=== PATIENT | male | born 1955 | race Caucasian/White ===

== ENCOUNTER 2020-07-27 10:47 | Inpatient (IN) ==
--- NOTE | 2020-07-05 13:45 | PAT Medication Instructions ---
Medication Instructions Date of Service July 05, 2020 Home Medications acetaminophen [Tylenol] 325 mg PO QID PRN hydroxyzine HCl 25 mg PO HS PRN lisinopril 5 mg PO QAM meloxicam 15 mg PO QDL ASK your surgeon for instructions meloxicam 15 mg PO QDL DO NOT take the morning of surgery lisinopril 5 mg PO QAM Take morning of surgery With a small sip of water, OTHERWISE NOTHING TO EAT OR DRINK AFTER MIDNIGHT: acetaminophen [Tylenol] 325 mg PO QID PRN (okay to take up to 4 hours prior to surgery if needed) Take evening before surgery acetaminophen [Tylenol] 325 mg PO QID PRN (if needed) hydroxyzine HCl 25 mg PO HS PRN (if needed) Other Notes If you have any questions please call us at [phone] or [phone] or [phone] or [phone]
--- NOTE | 2020-07-07 13:05 | Anesthesiology Consultation ---
Date of Service July 07, 2020 Assessment & Plan (1) Encounter for pre-operative examination: Chart Review Chart Review: Acceptable Risk for Surgery (pending preop Covid testing ) and Patient seen in Pre Admission Testing Per PAT 07/07/20, patient denies any recent travel. Patient denies any recent Covid infection in the past 90 days. No known Covid positive contacts or Covid related symptoms. Preop Covid testing scheduled 07/22/20= will await results . Educated on importance of self quarantining, social distancing and wearing mask in public both for the patient and household contacts. Teaching & Discussion Pre-Anesthesia Teaching/Discussion Notes: Instructed NPO after midnight before surgery,except medications with 15 cc of water. Medication instructions provi ded according to the PAT guidelines. History Surgery Operation Date: 07/27/20 09:15 Proposed Procedures p Right Total Shoulder Arthroplasty - Garcia Brasher MD Height/Weight Height: 5 ft 9 in Weight: 107.5 kg Allergies Allergy/AdvReac Type Severity Reaction Status Date / Time nitroglycerin AdvReac Mild passed Unverified 06/22/20 09:31 out, low blood pressure Medications Home Medications Medication Instructions Recorded Confirmed Last Taken acetaminophen [Tylenol] 325 mg PO QID PRN 06/22/20 06/22/20 Unknown hydroxyzine HCl 25 mg PO HS PRN 06/22/20 06/22/20 Unknown lisinopril 5 mg PO QAM 06/22/20 06/22/20 Unknown meloxicam 15 mg PO QDL 06/22/20 06/22/20 Unknown Past Medical History Medical History TANGIRNAQ (hard of hearing) No hearing aids at this time HTN (hypertension) Osteoarthritis Exercise / Class Metabolic Activity II 4-5 Yardwork/Stairs/Walk up hill (ONE FLIGHT OF STAIRS - NO CHEST PAIN OR SOB ) Past Family History Family History Mother Diabetes Other No family history of adverse response to anesthesia Past Surgical History Surgical History History of arthroscopic knee surgery BL History of arthroscopy of left shoulder History of colonoscopy History of lumbar surgery History of tooth extraction Past Anesthesia History No Hx of Anesthesia Complications and No Family Hx of Anesthesia Complications History of PONV No Hx of PONV and No Hx of Motion Sickness Social History Smoking Status: Former smoker Smoking cigarettes per day: many years ago Do You Dip or Chew Tobacco: No (quit years ago) Hx Alcohol Use: No Hx Substance Use: No substance use type: does not use Review of Systems Patient denies chest pain, shortness of breath, dyspnea on exertion, reflux, cough, wheezing, palpitations. No hx of seizures, stroke, NH, apnea/snoring. No hx of blood clots or blood transfusions Physical Exam Vital Signs VITALS BP 119/80 P 88 TEMP 98.1 SP02 96% RESP 16 Constitutional no acute distress ENMT Mouth: no TMJ clicking Thyromental Distance: > or= 3.5 Finger Breadths (3.5) Mallampati Class: II (smaller airway ) Denies loose or missing teeth Neck + facial hair (encouraged patient to shave cordova ); neck extension not limited Respiratory normal respiratory effort; no respiratory distress Auscultation: lungs clear to auscultation bilaterally and + diminished lung sounds (mildly throughout ); no wheezes Cardiovascular Rate/Rhythm: regular rate and regular rhythm Heart Sounds: no murmur Vessels: no carotid bruit Musculoskeletal Spine: + pain with cervical ROM (mild ) Extremities: extremities normal to inspection Psychiatric Orientation: alert Testing Laboratory Results 07/07/20 13:27 07/07/20 13:52 PT 10.2 Seconds (9.0-12.0) 07/07/20 13:27 INR 1.0 (0.9-1.1) 07/07/20 13:27 APTT 27.2 Seconds (21.0-31.0) 07/07/20 13:27 Hemoglobin A1c 5.9 % (4.5-5.6) H 07/07/20 13:27 Urine Color Yellow 07/07/20 Unknown Urine Appearance Clear (Clear) 07/07/20 Unknown Urine pH 6.0 (4.5-7.5) 07/07/20 Unknown Ur Specific [place] 1.022 (1.000-1.030) 07/07/20 Unknown Urine Protein Negative (Negative) 07/07/20 Unknown Urine Glucose (UA) 1+ (Negative) H 07/07/20 Unknown Urine Ketones Negative (Negative) 07/07/20 Unknown Urine Nitrite Negative (Negative) 07/07/20 Unknown Ur Leukocyte Esterase Negative (Negative) 07/07/20 Unknown Blood Type A Positive 07/07/20 13:27 Antibody Screen NEGATIVE 07/07/20 13:27 Electrocardiogram Date: 07/07/20 Findings: + NSR @ (79bpm) Low voltage QRS. Cannot rule out anterior infarct, age undetermined. Compared to EKG from Mar 03, 2013- minimal criteria for anterior infarct now prsent (EKG from 2010 included - showing possible anterior infarct; pt has good functional status) Chest X-Ray Date: 07/07/20 Findings: + NAD There is mild elevation of the right hemidiaphragm and bibasilar atelectasis. No airspace consolidation or pleural effusion is identified. There is no pneumothorax.
[2020-07-07 13:49] LABS: Basophils # (auto) 0.05 K/uL (0-0.2); Basophils % (auto) 0.7 %; Eosinophils # (auto) 0.25 K/uL (0-0.5); Eosinophils % (auto) 3.6 %; Hematocrit (blood only) 45.8 % (42-52); Hemoglobin 15.9 g/dL (14.0-18.0); Immature Granulocytes # (auto) 0.01 K/uL (0.00-0.02); Immature Granulocytes % (auto) 0.1 %; Lymphocytes # (auto) 1.62 K/uL (1.2-3.4); Lymphocytes % (auto) 23.1 %; Mean Corpuscular Hemoglobin 30.2 pg (25-34); Mean Corpuscular Hgb Conc 34.7 g/dL (32-36); Mean Corpuscular Volume 87.1 fL (80-100); Mean Platelet Volume 10.4 fL (7.4-10.4); Monocytes # (auto) 0.96 K/uL (0.11-0.59); Monocytes % (auto) 13.7 %; Neutrophils # (auto) 4.11 K/uL (1.4-6.5); Neutrophils % (auto) 58.8 %; Platelet Count 208 K/uL (130-400); RDW Coefficient of Variation 12.6 % (11.5-14.5); RDW Standard Deviation 40.3 fL (36.4-46.3); Red Blood Count 5.26 M/uL (4.7-6.1)
--- NOTE | 2020-07-07 13:54 | XRay Report ---
TWO VIEW CHEST CLINICAL HISTORY: Preoperative examination. FINDINGS: PA and lateral chest radiographs are compared to study dated 12/06/2010. The cardiomediastina l silhouette is unremarkable noting atherosclerotic calcification of the thoracic aorta. There is mil d elevation of the right hemidiaphragm and bibasilar atelectasis. No airspace consolidation or pleura l effusion is identified. There is no pneumothorax. The bony thorax appears intact. IMPRESSION: No active disease in the chest. ACT 112: Negative or not required by law. Electronically signed by: Sloan Elias M.D. 07/07/2020 1:52 PM
[2020-07-07 14:01] LABS: Partial Thromboplastin Time 27.2 Seconds (21.0-31.0); Prothrombin Time 10.2 Seconds (9.0-12.0)
[2020-07-07 14:12] LABS: Estimated Average Glucose 123 mg/dl; Hemoglobin A1C 5.9 % (4.5-5.6)
[2020-07-07 14:24] LABS: BUN Creatinine Ratio 16.8 (10-20); Calcium 9.8 mg/dl (8.5-10.1); Creatinine Clr Calc Pharmacy 77.1 ml/min; Est GFR (African American) 75.9; Est GFR (Non-African American) 65.5; Potassium 4.1 mmol/L (3.5-5.1)
[2020-07-07 14:42] LABS: Appearance Urine Clear (Clear); Bilirubin Urine Negative (Negative); Blood Urine Negative (Negative); Color Urine Yellow; Glucose Urine UA 1+ (Negative); Ketones Urine Negative (Negative); Leukocyte Esterase Urine Negative (Negative); Nitrite Urine Negative (Negative); Protein Urine Negative (Negative); Specific Gravity Urine 1.022 (1.000-1.030); Urobilinogen Urine Negative (Negative)
--- NOTE | 2020-07-08 05:52 | Electrocardiogram Report ---
Test Reason : Blood Pressure : / mmHG Vent. Rate : 079 BPM Atrial Rate : 079 BPM P-R Int : 172 ms QRS Dur : 072 ms QT Int : 368 ms P-R-T Axes : 062 -23 062 degrees QTc Int : 421 ms Normal sinus rhythm Low voltage QRS Cannot rule out Anterior infarct , age undetermined Abnormal ECG When compared with ECG of 03-MAR-2013 07:35, Minimal criteria for Anterior infarct are now Present Confirmed by Aristides Landis ([id number]) on 07/08/2020 5:52:46 AM Referred By: Garcia Brasher Confirmed By:Aristides Landis
--- NOTE | 2020-07-10 21:31 | History & Physical Report ---
Date of Service July 10, 2020 Assessment & Plan (1) Primary osteoarthritis, right shoulder: Treatment options discussed with patient. He has failed conservative measures as above. Risks, benefits and alternatives to surgery including but not limited to infection, DVT, pain, stiffness, need for revision surgery, damage to blood vessels, damage to nerves, PE, , were discussed with the patient and they wish to proceed. Plan will be for right shoulder OVO motion total shoulder arthroplasty at [facility] on 07/27/[address] Brasher. All questions answered. He will follow up post operatively. Will plan on aspirin 81mg daily for DVT prophylaxis, OPPT post discharge. History of Present Illness Chief Complaint: Right shoulder pain Primary Care Provider: Vaughn Guzman 65 year old male with PMHx significant for HTN presents with ongoing right shoulder pain. He had previously underwent right shoulder arthroscopy with debridement, subacromial decompression, and distal clavicle excision. He has had progressive right shoulder pain interfering with his ability to carry out normal daily activity and his work activities. He has significant arthritis in right shoulder. He has failed conservative measures including injections, therapy, NSAIDs. Definitive treatment would be arthroplasty and he wishes to proceed. Patient denies headaches, sweats, fevers, chills, double vision, blurred vision, cough, sore throat, dysphagia, chest pain, sob, wheezing, n/v/d/c, numbness, tingling, fatigue, urinary symptoms, mood disorders. ROS positive for right shoulder pain and stiffness. Allergies Allergy/AdvReac Type Severity Reaction Status Date / Time nitroglycerin AdvReac Mild passed Unverified 06/22/20 09:31 out, low blood pressure Home Medications Medication Instructions Recorded Confirmed Type acetaminophen [Tylenol] 325 mg PO QID PRN 06/22/20 06/22/20 History hydroxyzine HCl 25 mg PO HS PRN 06/22/20 06/22/20 History lisinopril 5 mg PO QAM 06/22/20 06/22/20 History meloxicam 15 mg PO QDL 06/22/20 06/22/20 History Past Med/Surg History Medical History TAKOTNA (hard of hearing) No hearing aids at this time HTN (hypertension) Osteoarthritis Surgical History History of arthroscopic knee surgery BL History of arthroscopy of left shoulder History of colonoscopy History of lumbar surgery History of tooth extraction Family History Mother Diabetes Other No family history of adverse response to anesthesia Social History Smoking Status: Former smoker Cigarettes Per Day: many years ago; Second Hand Exposure: Yes (hx); Do You Dip or Chew Tobacco: No (quit years ago); Tobacco Cessation Education Requested by Patient: No Hx Alcohol Use: No Hx Substance Use: No Preferred Language: Brazilian Communication Ability: Effective Asbestos Abatement Technician Required: No Beliefs That Will Affect Care: None Current Living Situation: Spouse Feels Safe at Home: Yes Safety Concerns: Feels Safe At This Time Assistive Devices: Glasses Review of Systems All systems reviewed & are unremarkable except as noted in HPI & below Physical Exam Constitutional: well developed and well nourished; no acute distress Eyes: PERRL, conjunctivae normal, anicteric sclerae ENMT: external ear and nose normal, oropharynx normal Neck: trachea midline, no thyromegaly Respiratory: normal respiratory effort, lungs clear to auscultation Cardiovascular: RRR, no murmur, no edema Musculoskeletal: Right shoulder: crepitus noted, painful ROM. Tenderness anterior glenoid. Decreased active motion. FF to 180 degrees, abduction to 120 degrees. 4+/5 ER, 5/5 IR, 4+/5 abduction. Skin: no rashes, warm and dry Neurologic: patellar DTR's 2+ bilat, sensation intact Psychiatric: A+Ox3, euthymic affect Results & Data ([facility]) Laboratory Results Lab Results 07/07/20 07/07/20 07/07/20 Range/Units 13:27 13:27 13:27 WBC 7.00 (4.8-10.8) K/uL RBC 5.26 (4.7-6.1) M/uL Hgb 15.9 (14.0-18.0) g/dL Hct 45.8 (42-52) % MCV 87.1 (80-100) fL MCH 30.2 (25-34) pg MCHC 34.7 (32-36) g/dL RDW Std Deviation 40.3 (36.4-46.3) fL RDW Coeff of Girish 12.6 (11.5-14.5) % Plt Count 208 (130-400) K/uL MPV 10.4 (7.4-10.4) fL Immature Gran % (Auto) 0.1 % Neut % (Auto) 58.8 % Lymph % (Auto) 23.1 % [place] % (Auto) 13.7 % Eos % (Auto) 3.6 % Baso % (Auto) 0.7 % Neut # (Auto) 4.11 (1.4-6.5) K/uL Lymph # (Auto) 1.62 (1.2-3.4) K/uL [place] # (Auto) 0.96 H (0.11-0.59) K/uL Eos # (Auto) 0.25 (0-0.5) K/uL Baso # (Auto) 0.05 (0-0.2) K/uL Immature Gran # (Auto) 0.01 (0.00-0.02) K/uL PT 10.2 (9.0-12.0) Seconds INR 1.0 (0.9-1.1) APTT 27.2 (21.0-31.0) Seconds PTT Ratio 1.0 Sodium (136-145) mmol/L Potassium (3.5-5.1) mmol/L Chloride (98-107) mmol/L Carbon Dioxide (21-32) mmol/L Anion Gap (3-11) BUN (7-18) mg/dl Creatinine (0.6-1.4) mg/dl Est Cr Clr Drug Dosing ml/min Est GFR ( Amer) Est GFR (Non-Af Amer) BUN/Creatinine Ratio (10-20) Glucose (70-99) mg/dl Estimat Average Glucose mg/dl Hemoglobin A1c (4.5-5.6) % Calcium (8.5-10.1) mg/dl Albumin (3.4-5.0) gm/dl Urine Color Urine Appearance (Clear) Urine pH (4.5-7.5) Ur Specific [place] (1.000-1.030) Urine Protein (Negative) Urine Glucose (UA) (Negative) Urine Ketones (Negative) Urine Blood (Negative) Urine Nitrite (Negative) Urine Bilirubin (Negative) Urine Urobilinogen (Negative) Ur Leukocyte Esterase (Negative) Blood Type A Positive Antibody Screen NEGATIVE 07/07/20 07/07/20 07/07/20 Range/Units 13:27 13:52 Unknown WBC (4.8-10.8) K/uL RBC (4.7-6.1) M/uL Hgb (14.0-18.0) g/dL Hct (42-52) % MCV (80-100) fL MCH (25-34) pg MCHC (32-36) g/dL RDW Std Deviation (36.4-46.3) fL RDW Coeff of Girish (11.5-14.5) % Plt Count (130-400) K/uL MPV (7.4-10.4) fL Immature Gran % (Auto) % Neut % (Auto) % Lymph % (Auto) % [place] % (Auto) % Eos % (Auto) % Baso % (Auto) % Neut # (Auto) (1.4-6.5) K/uL Lymph # (Auto) (1.2-3.4) K/uL [place] # (Auto) (0.11-0.59) K/uL Eos # (Auto) (0-0.5) K/uL Baso # (Auto) (0-0.2) K/uL Immature Gran # (Auto) (0.00-0.02) K/uL PT (9.0-12.0) Seconds INR (0.9-1.1) APTT (21.0-31.0) Seconds PTT Ratio Sodium 137 (136-145) mmol/L Potassium 4.1 (3.5-5.1) mmol/L Chloride 105 (98-107) mmol/L Carbon Dioxide 27 (21-32) mmol/L Anion Gap 6.0 (3-11) BUN 20 H (7-18) mg/dl Creatinine 1.17 (0.6-1.4) mg/dl Est Cr Clr Drug Dosing 77.1 ml/min Est GFR ( Amer) 75.9 Est GFR (Non-Af Amer) 65.5 BUN/Creatinine Ratio 16.8 (10-20) Glucose 86 (70-99) mg/dl Estimat Average Glucose 123 mg/dl Hemoglobin A1c 5.9 H (4.5-5.6) % Calcium 9.8 (8.5-10.1) mg/dl Albumin 4.0 (3.4-5.0) gm/dl Urine Color Yellow Urine Appearance Clear (Clear) Urine pH 6.0 (4.5-7.5) Ur Specific [place] 1.022 (1.000-1.030) Urine Protein Negative (Negative) Urine Glucose (UA) 1+ H (Negative) Urine Ketones Negative (Negative) Urine Blood Negative (Negative) Urine Nitrite Negative (Negative) Urine Bilirubin Negative (Negative) Urine Urobilinogen Negative (Negative) Ur Leukocyte Esterase Negative (Negative) Blood Type Antibody Screen Diagnostic Findings Right shoulder radiographs: Post operative changes consistent with prior arthroscopy. Degenerative changes glenohumeral joint with joint space narrowing and osteophyte formation MRI: Rotator cuff tendinopathy. Partial tearing subscapularis tendon. Biceps tendinopathy. Marked degenerative changes GH joint.
[~2020-07-27 10:47] MED LIST: ACETAMINOPHEN 500 MG TAB PO SCH; BUPIVACAINE 0.5 % 5 MG/1 ML PF 10ML VIAL ONE; CeleBREX 200 MG CAP PO SCH; FAMOTIDINE 20 MG TAB PO SCH; GABAPENTIN 600 MG DOSE PO SCH; LIDOCAINE HCL 2% 2 ML VIAL/AMP(20MG/ML) INFIL ONE; LR 15ML/HR IV SCH; METOCLOPRAMIDE HCL 10 MG TABLET PO SCH; MIDAZOLAM HCL 1 MG/ML 2ML VIAL ONE; ONDANSETRON INJ 2 MG/ML 2 ML VIAL ONE; PROPOFOL IV EMULSION 10 MG/ML 20 ML VIAL IV ONE; ceFAZolin 2000MG 2,000 MG/15 ML SYR IV SCH; dexAMETHasone 4 MG TAB PO SCH; fentaNYL citrate 100 MCG/2 ML VIAL ONE
[2020-07-27] MEDS ORDERED: EPINEPHrine INJ 1 MG/ML AMP ONE (11:15)
[2020-07-27] MEDS ORDERED: BACITRACIN INJ 50,000 UNIT VIAL ONE (11:15)
[2020-07-27] MEDS ORDERED: fentaNYL citrate 100 MCG/2 ML VIAL IV PRN (12:12)
[2020-07-27] MEDS ORDERED: ePHEDrine sulfate 50 MG/ML AMP IV PRN (12:12)
[2020-07-27] MEDS ORDERED: ONDANSETRON INJ 2 MG/ML 2 ML VIAL IV PRN ×2 (12:12→17:17)
[2020-07-27] MEDS ORDERED: PROMETHAZINE HCL 6.25 MG in SODIUM CHLORIDE 0.9% 50 ML IV PRN (12:12)
[2020-07-27] MEDS ORDERED: ATROPINE SULFATE 0.1 MG/ML 10ML SYR IV PRN (12:12)
--- NOTE | 2020-07-27 12:15 | History & Physical Bridge Note ---
Date of Service July 27, 2020 History & Physical Bridge Note I have examined the patient, reviewed the History & Physical and in the interval since the performance of the History & Physical I have noted the following changes of clinical significance: no changes noted
[2020-07-27] MEDS ORDERED: fentaNYL citrate 100 MCG/2 ML VIAL ONE ×2 (12:54→13:48)
[2020-07-27] MEDS ORDERED: ONDANSETRON INJ 2 MG/ML 2 ML VIAL ONE (13:06)
[2020-07-27] MEDS ORDERED: ROCURONIUM BROMIDE 10 MG/ML 5 ML VIAL IV ONE (14:23)
[2020-07-27] MEDS ORDERED: GLYCOPYRROLATE 0.2 MG/ML VIAL ONE (15:46)
[2020-07-27] MEDS ORDERED: NEOSTIGMINE METHYLSULFATE 5 MG/5 ML SYR ONE (15:46)
--- NOTE | 2020-07-27 16:02 | Operative Report ---
Post Operative Report Pre & Post Diagnosis Operation Date: 07/27/20 12:40 Pre-Op Diagnosis: Primary Osteoarthritis Shoulder Right, biceps tenosynovitis possible partial tear rotator cuff Post-Op Diagnosis: Primary Osteoarthritis Shoulder Right, marked biceps tenosynovitis biceps tendinopathy, intact rotator cuff. I identified the patient and participated in the time-out.: Yes Procedure Operation Date: 07/27/20 12:40 Actual Procedures Right Total Shoulder Arthroplasty, biceps tenodesis- Garcia Brasher MD Surgeon Garcia Brasher MD Highwall Drill Operator Jam PEREA Estimated Blood Loss 200 Findings Consistent with Post-Op Diagnosis Specimens None Drains 2 Hemovac Anesthesia Type General Regional Complications none Disposition Accompanied Patient To Recovery: No Disposition: Recovery Room Indications 65-year-old male with chronic right shoulder pain. Patient had previous surgery arthroscopically in the past. Patient's MRI suggest possible partial tear rotator cuff subscapularis possible small partial tears of the supraspinatus infraspinatus with biceps tendinitis. Description of Procedure Patient was placed placed under regional block and general anesthetic. The right upper extremity had a towel roll placed on the medial border of the scapula and translated to the side of the bed so it could be manipulated off of the bed as necessary. A foam headrest was placed and protective eyewear was placed. Lower extremities were well-padded. Patient was positioned in a beachchair position approximately 40 degrees. Shoulder exam demonstrated external rotation to about 40 degrees internal rotation to 80 degrees forward flexion of 140 degrees with [id number] crepitation of the shoulder.. The right upper extremity was prepped and draped in sterile fashion. A deltopectoral approach was performed with a longitudinal incision in a deltopectoral interval. The skin was incised sharply and the subcutaneous flaps were elevated. There was not a well-defined deltopectoral interval and patient had a small vein but no typical large cephalic vein. There is some scar tissue from previous surgery. The interval was defined high over the coracoid process and dissected down to the pectoralis insertion site. Some crossing veins were tied off with silk ties and divided the small vein was cauterized. The clavipectoral fascia was divided at the lateral margin of the conjoined tendon and extended up to the CA ligament. The subacromial bursa which was moderately scarred was resected. A self-retaining retractor was placed. Biceps findings demonstrated marked biceps tenosynovitis with large fluid collection in the biceps tendon extending up in the bicipital groove with some tendinopathy in the bicipital groove.. Biceps tendon was tenodesed to the pectoralis with [id number] #2 FiberWire sutures. The chronic tenosynovitis was resected and the proximal biceps resected. The circumflex vessels were tied off with silk ties and divided laterally. The subscapularis muscle fibers were at the level of the circumflex vessels dissection was taken down to the capsule and a Kitner elevator was used to release the inferior fibers of the capsule protecting the axillary nerve inferiorly. A blunt Hohmann retractors were placed between the inferior located axillary nerve and the capsule. This was verified with a tug test. The rotator was opened up and extended down to the glenoid. The subscapularis was taken down with a transtendinous incision leaving a cuff of tissue for repair on the lesser tuberosity. The incision was carried through the subscapularis to the capsule and then subperiosteally along the inferior capsule exposing the inferior humeral osteophytes. These demonstrated large inferior osteophytes from anterior to posterior.. The osteophytes were resected with an artist chisel and rongeur. The humeral head findings demonstrated eburnated bone and central region of the majority of the humeral head with some minor remaining thinned articular cartilage around the edges.. After the osteophytes were resected humeral head is retracted posterior to the glenoid with a Fukuda retractor. The glenoid findings demonstrated two thirds articular surface was eburnated bone this was posterior. There was some posterior wear. There are still some articular cartilage anteriorly. There is degeneration of the labrum. The labrum was resected and the biceps tendon resected. A 360 degree release of the subscapularis was performed. Appropriate releases were performed about the glenoid. Subperiosteal release with electrocautery on the glenoid anterior and inferior and also utilizing a small Duran elevator to perform that release. Upon completion of the releases the humeral head was reexposed with retractors and humeral head was sized for a size 52 x 48 Arthrosurface OVO motion humeral head. The central guidepin was placed. The threaded stop for the reamer was drilled into the head. This was placed at the appropriate depth. The head reamer was used. All debris was irrigated out of the joint. The flat head resection reamer was used. The remaining section of bone was removed with a saw. The humerus was then retracted posteriorly again with the Fukuda retractor posterior to the glenoid. The guide for the glenoid component was placed and the guide pin was advanced to the appropriate depth. Glenoid reamers were utilized. The depth gauge verified the depth of the reaming. The drill hole for the central post was placed. Trial component was placed at satisfactory position and depth. Trial was removed and the glenoid reamed area was prepared for cementing with several drill holes placed around the reamed area to accept cement. After further irrigation the reamed area was packed with epinephrine soaked tampon sponges. The [place] cement was vacuum mixed. The cement was injected into the glenoid and compressed with a finger compression device. More cement was placed on the back of the glenoid component and it was inserted into the reamed area in appropriate position with the suction device that held onto the component. When the component was appropriate seating position the suction was removed as well as a suction device and direct pressure was placed on of the component and excess cement was cleared and the component was held in position until the cement fully cured. Attention was taken back to the humerus. The humeral head guide was placed onto the humeral head in the appropriate position. The guidepin was readvanced in position. The 12 mm tapered post was inserted to appropriate depth with excellent fixation. At this time 3 drill holes were made along the lateral surface of the lesser tuberosity spanning the distance of the subscapularis attachment and 3 transosseous #5 FiberWire sutures were placed for repair of the subscapularis. After copious irrigation the Regan taper of the tapered post was dried and then the OVO motion humeral component size 52 x 48 was impacted onto the taper post with stable fixation. This was assessed with a Duran elevator to be stable. This was then reduced to the glenoid and range of motion and stability was assessed. After copious irrigation the subscapularis was repaired with the #5 FiberWire sutures using Chay-Aron suture technique and lateral row soft tissue repair with #2 FiberWire [id number] sutures and the rotator interval was closed in maximal external rotation with interrupted #2 FiberWire sutures. Range of motion was assessed demonstrating 170 degrees forward elevation 45 degrees external rotation 90 degrees abduction without any tension on subscap repair. The pectoralis tendon was repaired with [id number] #2 FiberWire sutures coursing the sutures through the biceps tendon to reinforce the biceps tenodesis. The wound was copiously irrigated and 2 Hemovac drains were placed brought out laterally. The deltopectoral interval was repaired with [id number] #1 Vicryl sutures and the subcutaneous tissues were closed into 2-0 Vicryl sutures and skin closed with pacheco and services were applied and a shoulder immobilizer. The patient tolerated the procedure well. Jam PEREA my physician assistant professor of art assisted in the procedure with arm positioning soft tissue retraction instrument management suture management and performed the subcutaneous and skin closure dressings and shoulder immobilizer application and will participate in the postop care the patient. I attest to the content of the Intraoperative Record and any orders documented therein. Any exceptions are noted below.
--- NOTE | 2020-07-27 16:32 | XRay Report ---
XR shoulder RT min 2V routine CLINICAL HISTORY: Post shoulder surgery COMPARISON: None. DISCUSSION: There are postsurgical changes of a total right shoulder arthroplasty. There is no disloc ation. There are overlying skin pacheco and surgical drains. IMPRESSION: Postsurgical changes of a total right shoulder arthroplasty. No evidence of dislocation ACT 112: Negative or not required by law. Electronically signed by: Marlon Carolina M.D. 07/27/2020 4:30 PM
--- NOTE | 2020-07-27 16:57 | Anesthesiology Progress Note ---
Date of Service July 27, 2020 Anesthesia Post Procedure Vital Signs Vital Signs: Temp Pulse Pulse Resp BP Pulse Ox 07/27/20 16:40 86 20 131/92 95 07/27/20 16:30 36.3 C L 80 18 128/95 98 07/27/20 16:20 72 14 131/86 98 07/27/20 16:10 72 14 134/84 97 07/27/20 16:00 75 19 141/95 H 97 07/27/20 15:58 36.6 C 76 15 129/86 96 07/27/20 11:25 36.9 C 80 18 139/86 95 07/27/20 11:09 36.6 C 84 18 145/90 H 98 Pain Intensity Right Shoulder: Pain Intensity: 5 Transfer of Care Handoff Completed per policy Notes Mental Status: alert / awake / arousable Patient Amnestic to Procedure: Yes Nausea / Vomiting: adequately controlled Pain: adequately controlled Airway Patency, RR, SpO2: stable & adequate BP & HR: stable & adequate Hydration State: stable & adequate Anesthetic Complications: no major complications apparent Notes: block working well in pacu
[2020-07-27] MEDS ORDERED: SODIUM CHLORIDE 0.9% 1000ML 1,000 ML IV SCH (17:17)
[2020-07-27] MEDS ORDERED: NALOXONE HCL 0.4 MG/1 ML VIAL/CARP IV PRN (17:17)
[2020-07-27] MEDS ORDERED: HYDROmorphone INJ 0.5 MG/0.5 ML SYR IV PRN (17:17)
[2020-07-27] MEDS ORDERED: MAGNESIUM HYDROXIDE SUSP 30 ML UDC PO PRN (17:17)
[2020-07-27] MEDS ORDERED: bisacodyL 10 MG SUPP PR PRN (17:17)
[2020-07-27] MEDS ORDERED: DEXTROSE 50% 50 ML SYRINGE IV PRN (17:58)
[2020-07-27] MEDS ORDERED: CARBOHYDRATES FOR HYPOGLYCEMIA PO PRN (17:58)
[2020-07-27] MEDS ORDERED: GLUCOSE 40% GEL 15 GM TUBE PO PRN (17:58)
[2020-07-27] MEDS ORDERED: GLUCOSE 10 TABS/TUBE PO PRN (17:58)
[2020-07-27] MEDS ORDERED: GLUCAGON FOR INJ 1 MG VIAL SQ PRN (17:58)
--- NOTE | 2020-07-27 18:00 | Hospitalist Consultation ---
Date of Consultation July 27, 2020 Assessment & Plan (1) Primary osteoarthritis, right shoulder: * Hx prior R shoulder arthroscopy w/ debridement, subacromial decompression, and distal clavicle excision but had progressive pain interferring with normal activities and failed outpatient injecti ons/PT/NSAIDs. Presented for elective intervention * Pre-op CXR 07/07 with mild elevation of right hemidiaphragm and bibasilar atelectasis, no consolidation or effusion or pneumothorax identified --> cur rently 94% on RA and would encourage continued use of incentive spirometer * Pre-op EKG NSR, low voltage QRS, but with minimal criteria for anterior infarct compared to prior in 2012, but EKG from 2010 showing possible anterior infarct as well and patient has good functional status s/p Right Total Shoulder Arthroplasty, biceps tenodesis- Garcia Brasher MD on 07/27. EBL 200cc. Pre-op h/h 15.9/45.8 * PT/OT/pain management/bowel regimen per primary service * Ancef for abx operatively x2 * NSS @ 100cc/hr ordered * DVT prophylaxis with ASA 81mg BID selected * OPPT planned at discharge * Labs in AM (2) HTN (hypertension): * Chronic. BP controlled 131/89 * Would hold lisinopril in AM proactively and if BP tolerates and Cr stable in AM would resume * Continue to monitor (3) Osteoarthritis: * On meloxicam prior to admission --> utilizing scheduled tylenol 1000mg Q8H, with oxycodone PO and Dilaudid IV for breakthrough pain (4) Pre-diabetes: * A1c 5.9 on check July 07 * Not on any medications at this time * Will monitor with BSG checks and ISS given patient received 8mg PO Decadron pre-operatively * Continue to monitor * Changed diet to AHA/DMII (5) DVT prophylaxis: * SCDs * ASA 81mg BID for proph ordered Plans on OPPT at discharge. Thank you for allowing hospitalist medicine to participate in the care of Mr. Weaver. Hospitalist service will follow along. Supervising Physician Co-Signing Physician Notes Patient was seen and examined independently I discussed the case with Rebekah Johnson PAC I reviewed pertinent past medical social family history and also the plan of care and agree with the plan of care. the pt was having better pain control when I did visit, no chest pain or shortness of breath and good sensation to his distal right arm cardiac exam was regular and lungs clear agree to hold am lisinopril until bp eval, trazadone for sleep and ecg with cp Any exceptions will be noted below History of Present Illness Reason for Consultation: medical management Requesting Physician: Dr Brasher Attending Physician: Garcia Brasher MD History of Present Illness 65 year old male with PMHx significant for HTN, pre-DM, and OA presented for RIGHT total shoulder arthroplasty with Dr. Brasher. Doing well post-operatively. Ate dinner without issues. Slightly sore throat but denies cough drops or need for anything for this. Pain increasing since surgery and discussed available options. He had previous surgery on same shoulder and is anticipating this to have worse pain than in the past. Discussed pre-diabetes and will cover with ISS while inpatient due to steroid administration to help with good glucose control and wound healing. Utilizes hydroxyzine at night as needed but does not work all the time. Did not get sleep last night and requesting something for sleep tonight. Will give dose of trazodone. No fever, chills, chest pain, shortness of breath (initially when back from surgery but improved with incentive spirometer), abdominal pain, nausea or vomiting at this time. Tachycardic but does not endorse palpitations. Regular in rhythm. Exercises 2-3x/week for 1-2miles. Does endorse some shortness of breath when walking up hill and getting to the top but otherwise denies any worrisome symptoms. Never had ECHO in past. No chest pain or swelling/edema or abdominal fullness. Discussed if these were to occur would recommend getting echo. Plans on OPPT at discharge -- already had been arranged to start next Saturday but will await PT/OT evals tomorrow. Discussed holding lisinopril for AM but if kidney function remains stable and BP tolerates will resume. Questions/concerns addressed at this time. Allergies Allergy/AdvReac Type Severity Reaction Status Date / Time nitroglycerin AdvReac Mild passed Verified 07/27/20 10:57 out, low blood pressure Home Medications Medication Instructions Recorded Confirmed Type acetaminophen [Tylenol] 325 mg PO QID PRN 06/22/20 07/27/20 History hydroxyzine HCl 25 mg PO HS PRN 06/22/20 07/27/20 History lisinopril 5 mg PO QAM 06/22/20 07/27/20 History meloxicam 15 mg PO QDL 06/22/20 07/27/20 History Patient History Medical History [place] [employer] (hard of hearing) No hearing aids at this time HTN (hypertension) Osteoarthritis Pre-diabetes Surgical History History of arthroscopic knee surgery BL History of arthroscopy of left shoulder History of colonoscopy History of lumbar surgery History of tooth extraction Family History Mother Diabetes Other No family history of adverse response to anesthesia Social History Smoking Status: Former smoker Cigarettes Per Day: many years ago; Second Hand Exposure: Yes (hx); Do You Dip or Chew Tobacco: No (quit years ago); Tobacco Cessation Education Requested by Patient: No Hx Alcohol Use: No Hx Substance Use: No Preferred Language: Chinese Communication Ability: Effective Solution Advisor Required: No Beliefs That Will Affect Care: None Current Living Situation: Spouse Feels Safe at Home: Yes Safety Concerns: Feels Safe At This Time Assistive Devices: Glasses Review of Systems Review of Systems: All systems reviewed & are unremarkable except as noted in HPI & below Physical Exam Constitutional: WD/WN, vitals as above cooperative and comfortable (sitting up in bed eating juliana crackers); no acute distress Eyes: + anicteric sclerae and PERRL ENMT: Ears: no EAC abnormality Nose: no external nose abnormality Neck: normal visual inspection and trachea midline Respiratory: normal respiratory effort; no labored breathing, no cough, not tachypneic and no audible wheezes Auscultation: lungs clear to auscultation bilaterally and + crackles (L basilar crackles) Cardiovascular: Rate/Rhythm: regular rhythm and + tachycardic Heart Sounds: no murmur Vessels: no JVD Extremities: no edema Gastrointestinal (Abdomen): Inspection/Auscultation: + abdomen distended and normal bowel sounds Percussion/Palpation: abdomen soft; abdomen nontender, no guarding and abdomen not rigid Musculoskeletal: right arm in sling, dressing intact hemovac with bloody drainage NVI pulse palpable and equal bilaterally Skin: warm, dry Neurologic: PERRL, EOMI, accommodation nl, no face palsy, no dysarthria (sensation intact) Psychiatric: Orientation: alert and oriented x 3 Lymphatic: no cervical or axillary lymphadenopathy Results & Data Results & Data ([facility]) Vital Signs (Past 12 Hours) Vital Signs Temp Pulse Pulse Pulse Resp BP Pulse Ox 07/27/20 17:28 36.6 C 99 H 17 131/89 94 07/27/20 16:50 95 H 18 118/86 94 07/27/20 16:40 86 20 131/92 95 07/27/20 16:30 36.3 C L 80 18 128/95 98 07/27/20 16:20 72 14 131/86 98 07/27/20 16:10 72 14 134/84 97 07/27/20 16:00 75 19 141/95 H 97 07/27/20 15:58 36.6 C 76 15 129/86 96 07/27/20 11:25 36.9 C 80 18 139/86 95 07/27/20 11:09 36.6 C 84 18 145/90 H 98 Diagnostic Findings XR shoulder RT min 2V routine CLINICAL HISTORY: Post shoulder surgery COMPARISON: None. DISCUSSION: There are postsurgical changes of a total right shoulder arthroplasty. There is no dislocation. There are overlying skin pacheco and surgical drains. IMPRESSION: Postsurgical changes of a total right shoulder arthroplasty. No evidence of dislocation PG Care Time/CCT Total # of Minutes Spent Total Time Spent with Patient: Total time spent is greater than 50% in coordination of care (as documented) at patient's floor/unit and/or counseling patient: Coding Level of Care Code 16447 Inpt Consult Level 3 Diagnoses Primary osteoarthritis, right shoulder M19.011 HTN (hypertension) I10 Osteoarthritis M19.90 Pre-diabetes R73.03 DVT prophylaxis Z29.9
[2020-07-27] MEDS ORDERED: traZODone HCL 50 MG TAB PO PRN (18:30)
[2020-07-27] MEDS ORDERED: hydrALAZINE HCL 20 MG/ML VIAL IV PRN (18:32)
[2020-07-27] MEDS: oxyCODONE HCL IR 5 MG TAB (IMMEDIATE RELEASE) PO PRN ×2 (19:46→23:49)
[2020-07-27] MEDS: DOCUSATE SODIUM 100 MG CAP PO SCH (20:54)
[2020-07-27] MEDS: ceFAZolin 2000MG 2,000 MG/15 ML SYR IV SCH (20:54)
[2020-07-27] MEDS: ACETAMINOPHEN 500 MG TAB PO SCH (20:55)
[2020-07-27] MEDS: ASPIRIN 81 MG ECTAB PO SCH (20:55)
[2020-07-27] MEDS ORDERED: SENNA 8.6 MG TAB PO SCH (21:00)
[2020-07-27] MEDS: INSULIN ASPART 100 UNITS/ML 3 ML PEN SC SCH (22:03)
[2020-07-28] MEDS: ceFAZolin 2000MG 2,000 MG/15 ML SYR IV SCH (03:13)
[2020-07-28] MEDS: ACETAMINOPHEN 500 MG TAB PO SCH (05:25)
[2020-07-28 07:36] LABS: Basophils # (auto) 0.01 K/uL (0-0.2); Basophils % (auto) 0.1 %; Hemoglobin 14.6 g/dL (14.0-18.0); Immature Granulocytes # (auto) 0.02 K/uL (0.00-0.02); Immature Granulocytes % (auto) 0.2 %; Lymphocytes # (auto) 1.01 K/uL (1.2-3.4); Lymphocytes % (auto) 8.2 %; Mean Corpuscular Volume 88.3 fL (80-100); Mean Platelet Volume 10.2 fL (7.4-10.4); Monocytes # (auto) 1.14 K/uL (0.11-0.59); Monocytes % (auto) 9.2 %; Neutrophils # (auto) 10.18 K/uL (1.4-6.5); Neutrophils % (auto) 82.3 %; Platelet Count 212 K/uL (130-400); RDW Coefficient of Variation 13.1 % (11.5-14.5); Red Blood Count 4.87 M/uL (4.7-6.1); White Blood Count 12.36 K/uL (4.8-10.8)
[2020-07-28 08:06] LABS: BUN Creatinine Ratio 17.1 (10-20); Calcium 8.8 mg/dl (8.5-10.1); Creatinine Clr Calc Pharmacy 80.5 ml/min; Est GFR (African American) 80.9; Est GFR (Non-African American) 69.8; Potassium 4.3 mmol/L (3.5-5.1)
[2020-07-28] MEDS: oxyCODONE HCL IR 5 MG TAB (IMMEDIATE RELEASE) PO PRN ×2 (08:07→12:05)
[2020-07-28] MEDS: DOCUSATE SODIUM 100 MG CAP PO SCH (08:08)
[2020-07-28] MEDS: ASPIRIN 81 MG ECTAB PO SCH (08:08)
[2020-07-28] MEDS: INSULIN ASPART 100 UNITS/ML 3 ML PEN SC SCH (08:11)
--- NOTE | 2020-07-28 08:46 | Anesthesiology Progress Note ---
Date of Service July 28, 2020 Anesthesia Post Procedure Vital Signs Vital Signs: Temp Pulse Pulse Pulse Resp BP Pulse Ox 07/28/20 07:37 36.6 C 69 16 118/84 97 07/28/20 02:25 36.6 C 99 H 18 116/83 95 07/27/20 21:20 37.1 C 114 H 16 116/72 94 07/27/20 18:59 36.9 C 113 H 16 129/84 96 07/27/20 18:04 112 H 16 139/81 96 07/27/20 17:28 36.6 C 99 H 17 131/89 94 07/27/20 17:00 36.5 C 91 H 18 137/92 96 07/27/20 16:50 95 H 18 118/86 94 07/27/20 16:40 86 20 131/92 95 07/27/20 16:30 36.3 C L 80 18 128/95 98 07/27/20 16:20 72 14 131/86 98 07/27/20 16:10 72 14 134/84 97 07/27/20 16:00 75 19 141/95 H 97 07/27/20 15:58 36.6 C 76 15 129/86 96 07/27/20 11:25 36.9 C 80 18 139/86 95 07/27/20 11:09 36.6 C 84 18 145/90 H 98 Pain Intensity Right Shoulder: Pain Intensity: 4 Notes Mental Status: alert / awake / arousable and participated in evaluation Patient Amnestic to Procedure: Yes Nausea / Vomiting: adequately controlled Pain: adequately controlled Airway Patency, RR, SpO2: stable & adequate BP & HR: stable & adequate Hydration State: stable & adequate Anesthetic Complications: no major complications apparent
--- NOTE | 2020-07-28 08:59 | Hospitalist Progress Note ---
Date of Service July 28, 2020 Assessment & Plan (1) Primary osteoarthritis, right shoulder: * Hx prior R shoulder arthroscopy w/ debridement, subacromial decompression, and distal clavicle excision but had progressive pain interferring with normal activities and failed outpatient injections/P T/NSAIDs. Presented for elective intervention * Pre-op CXR 07/07 with mild elevation of right hemidiaphragm and bibasilar atelectasis, no consolidation or effusion or pneumothorax identified --> currently 94% on RA and would encourage continued use of incentive spirometer * Pre-op EKG NSR, low voltage QRS, but with minimal criteria for anterior infarct compared to prior in 2013, but EKG from 2010 showing possible anterior infarct as well and patient has good functional status POD #1 s/p Right Total Shoulder Arthroplasty, biceps tenodesis- Garcia Brasher MD on 07/27. EBL 200cc. Pre-op h/h 15.9/45.8 * PT/OT/pain management/bowel regimen per primary service * Ancef for abx operatively x2 * NSS @ 100cc/hr ordered * WBC elevated but got steroids, no fever or signs of infection on labs/exam * Hemovac output 280cc. Repeat CBC this AM with stable H/h at 14.6/43.0. * DVT prophylaxis with ASA 81mg BID selected * OPPT planned at discharge (2) HTN (hypertension): * Chronic. BP controlled 118/84 * Held AM Lisinopril and creatinine is stable, but given lower BPs would hold for today and plan to resume tomorrow 07/29 * Continue to monitor (3) Osteoarthritis: * On meloxicam prior to admission --> utilizing scheduled tylenol 1000mg Q8H, with oxycodone PO and Dilaudid IV for breakthrough pain (4) Pre-diabetes: * A1c 5.9 on check July 07 * Not on any medications at this time * Will monitor with BSG checks and ISS given patient received 8mg PO Decadron pre-operatively --> refused insulin * AHA/DMII diet ordered * rec f/u with PCP (5) DVT prophylaxis: * SCDs * ASA 81mg BID for proph ordered Plans on OPPT at discharge. Thank you for allowing hospitalist medicine to participate in the care of Mr. Weaver. Hospitalist service will sign off at this time. Please call with any questions/concerns. Admission and Anticipated Discharge Date Admission Date: July 27, 2020 Supervising Physician Co-Signing Physician Notes PA Supervision Note: I did not personally see or examine the patient today, but I verified all perez points of ELIAZAR Johnson's assessment and plan with the following exceptions/additions: None Subjective Patient evaluated this morning. Doing well. Seen by ortho and therapy this morning and plans on discharge. Pain controlled. Eating/drinking without issue. No chest pain, shortness of breath, fever, abdominal pain, n/v/dysuria reported. Dressing and anticipating discharge this morning. Instructed to continue to hold lisinopril for today and he can resume tomorrow. Review of Systems Review of Systems: All systems reviewed & are unremarkable except as noted in HPI & below Physical Exam Constitutional: WD/WN, vitals as above cooperative and comfortable (sitting up at side of bed dressing and ready for d/c); no acute distress Eyes: + anicteric sclerae and PERRL ENMT: Ears: no EAC abnormality Nose: no external nose abnormality Neck: normal visual inspection and trachea midline Respiratory: normal respiratory effort; no labored breathing, no cough, not tachypneic and no audible wheezes Auscultation: lungs clear to auscultation bilaterally; no crackles Cardiovascular: Rate/Rhythm: regular rate and regular rhythm Heart Sounds: no murmur Vessels: no JVD Extremities: no edema Gastrointestinal (Abdomen): Inspection/Auscultation: normal bowel sounds Percussion/Palpation: abdomen soft; abdomen nontender, no guarding and abdomen not rigid Musculoskeletal: right shoulder in sling. dressing c/d/i NVI pulses palpable Scrub Technician strength 5/5 Neurologic: PERRL, EOMI, accommodation nl, no face palsy, no dysarthria (sensation intact) Psychiatric: Orientation: alert and oriented x 3 Lymphatic: no cervical or axillary lymphadenopathy Results & Data Results & Data ([facility]) Vital Signs (Past 12 Hours) Vital Signs Temp Pulse Resp BP Pulse Ox 07/28/20 07:37 36.6 C 69 16 118/84 97 07/28/20 02:25 36.6 C 99 H 18 116/83 95 07/27/20 21:20 37.1 C 114 H 16 116/72 94 Laboratory Results 07/28/20 07/28/20 07/28/20 Range/Units 07:57 06:46 06:46 WBC 12.36 H (4.8-10.8) K/uL RBC 4.87 (4.7-6.1) M/uL Hgb 14.6 (14.0-18.0) g/dL Hct 43.0 (42-52) % MCV 88.3 (80-100) fL MCH 30.0 (25-34) pg MCHC 34.0 (32-36) g/dL RDW Std Deviation 42.0 (36.4-46.3) fL RDW Coeff of Girish 13.1 (11.5-14.5) % Plt Count 212 (130-400) K/uL MPV 10.2 (7.4-10.4) fL Immature Gran % (Auto) 0.2 % Neut % (Auto) 82.3 % Lymph % (Auto) 8.2 % Custer % (Auto) 9.2 % Eos % (Auto) 0.0 % Baso % (Auto) 0.1 % Neut # (Auto) 10.18 H (1.4-6.5) K/uL Lymph # (Auto) 1.01 L (1.2-3.4) K/uL Custer # (Auto) 1.14 H (0.11-0.59) K/uL Eos # (Auto) 0.00 (0-0.5) K/uL Baso # (Auto) 0.01 (0-0.2) K/uL Immature Gran # (Auto) 0.02 (0.00-0.02) K/uL Sodium 136 (136-145) mmol/L Potassium 4.3 (3.5-5.1) mmol/L Chloride 105 (98-107) mmol/L Carbon Dioxide 26 (21-32) mmol/L Anion Gap 5.0 (3-11) BUN 19 H (7-18) mg/dl Creatinine 1.11 (0.6-1.4) mg/dl Est Cr Clr Drug Dosing 80.5 ml/min Est GFR ( Amer) 80.9 Est GFR (Non-Af Amer) 69.8 BUN/Creatinine Ratio 17.1 (10-20) Glucose 131 H (70-99) mg/dl POC Glucose 125 H (70-99) mg/dl Calcium 8.8 (8.5-10.1) mg/dl 07/27/20 Range/Units 20:40 WBC (4.8-10.8) K/uL RBC (4.7-6.1) M/uL Hgb (14.0-18.0) g/dL Hct (42-52) % MCV (80-100) fL MCH (25-34) pg MCHC (32-36) g/dL RDW Std Deviation (36.4-46.3) fL RDW Coeff of Girish (11.5-14.5) % Plt Count (130-400) K/uL MPV (7.4-10.4) fL Immature Gran % (Auto) % Neut % (Auto) % Lymph % (Auto) % Custer % (Auto) % Eos % (Auto) % Baso % (Auto) % Neut # (Auto) (1.4-6.5) K/uL Lymph # (Auto) (1.2-3.4) K/uL Custer # (Auto) (0.11-0.59) K/uL Eos # (Auto) (0-0.5) K/uL Baso # (Auto) (0-0.2) K/uL Immature Gran # (Auto) (0.00-0.02) K/uL Sodium (136-145) mmol/L Potassium (3.5-5.1) mmol/L Chloride (98-107) mmol/L Carbon Dioxide (21-32) mmol/L Anion Gap (3-11) BUN (7-18) mg/dl Creatinine (0.6-1.4) mg/dl Est Cr Clr Drug Dosing ml/min Est GFR ( Amer) Est GFR (Non-Af Amer) BUN/Creatinine Ratio (10-20) Glucose (70-99) mg/dl POC Glucose 179 H (70-99) mg/dl Calcium (8.5-10.1) mg/dl PG Care Time/CCT Total # of Minutes Spent Total Time Spent with Patient: Total time spent is greater than 50% in coordination of care (as documented) at patient's floor/unit and/or counseling patient: Coding Level of Care Code 09156 Subseq Obs Care Lvl 1 Diagnoses Primary osteoarthritis, right shoulder M19.011 HTN (hypertension) I10 Osteoarthritis M19.90 Pre-diabetes R73.03 DVT prophylaxis Z29.9
[2020-07-28] MEDS ORDERED: MULTIVITAMIN TAB PO SCH (09:00)
[2020-07-28] MEDS ORDERED: lisinopril 5 MG TAB PO SCH (09:00)
--- NOTE | 2020-07-28 09:23 | Orthopedic Progress Note ---
Date of Service July 28, 2020 Assessment & Plan (1) Primary osteoarthritis, right shoulder: Postop day 1 status post right total shoulder arthroplasty PT/OT protocols. Nonweightbearing on the right upper extremity with no biceps strengthening exercises. DVT prophylaxis-aspirin p.o. twice daily, SCDs. Pain management as written. DC planning-planning for outpatient PT upon discharge. Admission and Anticipated Discharge Date Admission Date: July 27, 2020 Subjective Postop day 1 Patient currently sitting up in the chair at the bedside. No complaints this morning. Pain controlled. States that his block is still functioning but starting to slowly wear off. Denies shortness of breath, chest pain, lightheadedness. Physical Exam Physical Exam: Dressings are clean, dry, and intact. He does have good range of motion of his fingers hand and wrist at this time but sensation is decreased still. Capillary refill is less than 2 seconds and the fingers are pink and warm. No pain in the right elbow. Sling is in place. Hemovac drainage was 50 mL from the previous shift. Results & Data ([facility]) Vital Signs (Past 12 Hours) Vital Signs Temp Pulse Resp BP Pulse Ox 07/28/20 07:37 36.6 C 69 16 118/84 97 07/28/20 02:25 36.6 C 99 H 18 116/83 95 Laboratory Results Laboratory Results WBC 12.36 K/uL (4.8-10.8) H 07/28/20 06:46 RBC 4.87 M/uL (4.7-6.1) 07/28/20 06:46 Hgb 14.6 g/dL (14.0-18.0) 07/28/20 06:46 Hct 43.0 % (42-52) 07/28/20 06:46 MCV 88.3 fL (80-100) 07/28/20 06:46 MCH 30.0 pg (25-34) 07/28/20 06:46 MCHC 34.0 g/dL (32-36) 07/28/20 06:46 RDW Std Deviation 42.0 fL (36.4-46.3) 07/28/20 06:46 RDW Coeff of Girish 13.1 % (11.5-14.5) 07/28/20 06:46 Plt Count 212 K/uL (130-400) 07/28/20 06:46 MPV 10.2 fL (7.4-10.4) 07/28/20 06:46 Immature Gran % (Auto) 0.2 % 07/28/20 06:46 Neut % (Auto) 82.3 % 07/28/20 06:46 Lymph % (Auto) 8.2 % 07/28/20 06:46 Scott % (Auto) 9.2 % 07/28/20 06:46 Eos % (Auto) 0.0 % 07/28/20 06:46 Baso % (Auto) 0.1 % 07/28/20 06:46 Neut # (Auto) 10.18 K/uL (1.4-6.5) H 07/28/20 06:46 Lymph # (Auto) 1.01 K/uL (1.2-3.4) L 07/28/20 06:46 Scott # (Auto) 1.14 K/uL (0.11-0.59) H 07/28/20 06:46 Eos # (Auto) 0.00 K/uL (0-0.5) 07/28/20 06:46 Baso # (Auto) 0.01 K/uL (0-0.2) 07/28/20 06:46 Immature Gran # (Auto) 0.02 K/uL (0.00-0.02) 07/28/20 06:46 PT 10.2 Seconds (9.0-12.0) 07/07/20 13:27 INR 1.0 (0.9-1.1) 07/07/20 13:27 APTT 27.2 Seconds (21.0-31.0) 07/07/20 13:27 PTT Ratio 1.0 07/07/20 13:27 Sodium 136 mmol/L (136-145) 07/28/20 06:46 Potassium 4.3 mmol/L (3.5-5.1) 07/28/20 06:46 Chloride 105 mmol/L (98-107) 07/28/20 06:46 Carbon Dioxide 26 mmol/L (21-32) 07/28/20 06:46 Anion Gap 5.0 (3-11) 07/28/20 06:46 BUN 19 mg/dl (7-18) H 07/28/20 06:46 Creatinine 1.11 mg/dl (0.6-1.4) 07/28/20 06:46 Est Cr Clr Drug Dosing 80.5 ml/min 07/28/20 06:46 Est GFR ( Amer) 80.9 07/28/20 06:46 Est GFR (Non-Af Amer) 69.8 07/28/20 06:46 BUN/Creatinine Ratio 17.1 (10-20) 07/28/20 06:46 Glucose 131 mg/dl (70-99) H 07/28/20 06:46 POC Glucose 125 mg/dl (70-99) H 07/28/20 07:57 Estimat Average Glucose 123 mg/dl 07/07/20 13:27 Hemoglobin A1c 5.9 % (4.5-5.6) H 07/07/20 13:27 Calcium 8.8 mg/dl (8.5-10.1) 07/28/20 06:46 Albumin 4.0 gm/dl (3.4-5.0) 07/07/20 13:52 Urine Color Yellow 07/07/20 Unknown Urine Appearance Clear (Clear) 07/07/20 Unknown Urine pH 6.0 (4.5-7.5) 07/07/20 Unknown Ur Specific Pratt 1.022 (1.000-1.030) 07/07/20 Unknown Urine Protein Negative (Negative) 07/07/20 Unknown Urine Glucose (UA) 1+ (Negative) H 07/07/20 Unknown Urine Ketones Negative (Negative) 07/07/20 Unknown Urine Blood Negative (Negative) 07/07/20 Unknown Urine Nitrite Negative (Negative) 07/07/20 Unknown Urine Bilirubin Negative (Negative) 07/07/20 Unknown Urine Urobilinogen Negative (Negative) 07/07/20 Unknown Ur Leukocyte Esterase Negative (Negative) 07/07/20 Unknown Blood Type A Positive 07/07/20 13:27 Antibody Screen NEGATIVE 07/07/20 13:27
--- NOTE | 2020-08-04 13:48 | Discharge Summary ---
Date of Service August 04, 2020 Admission HPI Per Admitting Provider 65 year old male with PMHx significant for HTN presents with ongoing right shoulder pain. He had previously underwent right shoulder arthroscopy with debridement, subacromial decompression, and distal clavicle excision. He has had progressive right shoulder pain interfering with his ability to carry out normal daily activity and his work activities. He has significant arthritis in right shoulder. He has failed conservative measures including injections, therapy, NSAIDs. Definitive treatment would be arthroplasty and he wishes to proceed. Patient denies headaches, sweats, fevers, chills, double vision, blurred vision, cough, sore throat, dysphagia, chest pain, sob, wheezing, n/v/d/c, numbness, tingling, fatigue, urinary symptoms, mood disorders. ROS positive for right shoulder pain and stiffness. Admission Exam Per Admitting Provider Physical Exam Constitutional: well developed and well nourished; no acute distress Eyes: PERRL, conjunctivae normal, anicteric sclerae ENMT: external ear and nose normal, oropharynx normal Neck: trachea midline, no thyromegaly Respiratory: normal respiratory effort, lungs clear to auscultation Cardiovascular: RRR, no murmur, no edema Musculoskeletal: Right shoulder: crepitus noted, painful ROM. Tenderness anterior glenoid. Decreased active motion. FF to 180 degrees, abduction to 120 degrees. 4+/5 ER, 5/5 IR, 4+/5 abduction. Skin: no rashes, warm and dry Neurologic: patellar DTR's 2+ bilat, sensation intact Psychiatric: A+Ox3, euthymic affect Principal Diagnosis Osteoarthritis right shoulder Discharge Data Allergies Allergy/AdvReac Type Severity Reaction Status Date / Time nitroglycerin AdvReac Mild passed Verified 07/27/20 10:57 out, low blood pressure Consultations 07/22/20 14:34 Consult Hospitalist Routine Procedures Performed Operation Date: 07/27/20 12:40 Actual Procedures p Right Total Shoulder Arthroplasty(Right) - Garcia Brasher MD Ordered Studies 07/27/20 05:00 US - OR guided needle placemen Routine Hospital Course (1) Primary osteoarthritis, right shoulder: Date of Service July 28, 2020 Assessment & Plan (1) Primary osteoarthritis, right shoulder: Postop day 1 status post right total shoulder arthroplasty PT/OT protocols. Nonweightbearing on the right upper extremity with no biceps s trengthening exercises. DVT prophylaxis-aspirin p.o. twice daily, SCDs. Pain management as written. DC planning-planning for outpatient PT upon discharge. Admission and Anticipated Discharge Date Admission Date: July 27, 2020 Subjective Postop day 1 Patient currently sitting up in the chair at the bedside. No complaints this morning. Pain controlled. States that his block is still functioning but starting to slowly wear off. Denies shortness of breath, chest pain, lightheadedness. Physical Exam Physical Exam: Dressings are clean, dry, and intact. He does have good range of motion of his fingers hand and wrist at this time but sensation is decreased still. Capillary refill is less than 2 seconds and the fingers are pink and warm. No pain in the right elbow. Sling is in place. Hemovac drainage was 50 mL from the previous shift. Results & Data ([facility]) Vital Signs (Past 12 Hours) Vital Signs Temp Pulse Resp BP Pulse Ox 07/28/20 07:37 36.6 C 69 16 118/84 97 07/28/20 02:25 36.6 C 99 H 18 116/83 95 Laboratory Results Laboratory Results WBC 12.36 K/uL (4.8-10.8) H 07/28/20 06:46 RBC 4.87 M/uL (4.7-6.1) 07/28/20 06:46 Hgb 14.6 g/dL (14.0-18.0) 07/28/20 06:46 Hct 43.0 % (42-52) 07/28/20 06:46 MCV 88.3 fL (80-100) 07/28/20 06:46 MCH 30.0 pg (25-34) 07/28/20 06:46 MCHC 34.0 g/dL (32-36) 07/28/20 06:46 RDW Std Deviation 42.0 fL (36.4-46.3) 07/28/20 06:46 RDW Coeff of Girish 13.1 % (11.5-14.5) 07/28/20 06:46 Plt Count 212 K/uL (130-400) 07/28/20 06:46 MPV 10.2 fL (7.4-10.4) 07/28/20 06:46 Immature Gran % (Auto) 0.2 % 07/28/20 06:46 Neut % (Auto) 82.3 % 07/28/20 06:46 Lymph % (Auto) 8.2 % 07/28/20 06:46 [place] % (Auto) 9.2 % 07/28/20 06:46 Eos % (Auto) 0.0 % 07/28/20 06:46 Baso % (Auto) 0.1 % 07/28/20 06:46 Neut # (Auto) 10.18 K/uL (1.4-6.5) H 07/28/20 06:46 Lymph # (Auto) 1.01 K/uL (1.2-3.4) L 07/28/20 06:46 [place] # (Auto) 1.14 K/uL (0.11-0.59) H 07/28/20 06:46 Eos # (Auto) 0.00 K/uL (0-0.5) 07/28/20 06:46 Baso # (Auto) 0.01 K/uL (0-0.2) 07/28/20 06:46 Immature Gran # (Auto) 0.02 K/uL (0.00-0.02) 07/28/20 06:46 PT 10.2 Seconds (9.0-12.0) 07/07/20 13:27 INR 1.0 (0.9-1.1) 07/07/20 13:27 APTT 27.2 Seconds (21.0-31.0) 07/07/20 13:27 PTT Ratio 1.0 07/07/20 13:27 Sodium 136 mmol/L (136-145) 07/28/20 06:46 Potassium 4.3 mmol/L (3.5-5.1) 07/28/20 06:46 Chloride 105 mmol/L (98-107) 07/28/20 06:46 Carbon Dioxide 26 mmol/L (21-32) 07/28/20 06:46 Anion Gap 5.0 (3-11) 07/28/20 06:46 BUN 19 mg/dl (7-18) H 07/28/20 06:46 Creatinine 1.11 mg/dl (0.6-1.4) 07/28/20 06:46 Est Cr Clr Drug Dosing 80.5 ml/min 07/28/20 06:46 Est GFR ( Amer) 80.9 07/28/20 06:46 Est GFR (Non-Af Amer) 69.8 07/28/20 06:46 BUN/Creatinine Ratio 17.1 (10-20) 07/28/20 06:46 Glucose 131 mg/dl (70-99) H 07/28/20 06:46 POC Glucose 125 mg/dl (70-99) H 07/28/20 07:57 Estimat Average Glucose 123 mg/dl 07/07/20 13:27 Hemoglobin A1c 5.9 % (4.5-5.6) H 07/07/20 13:27 Calcium 8.8 mg/dl (8.5-10.1) 07/28/20 06:46 Albumin 4.0 gm/dl (3.4-5.0) 07/07/20 13:52 Urine Color Yellow 07/07/20 Unknown Urine Appearance Clear (Clear) 07/07/20 Unknown Urine pH 6.0 (4.5-7.5) 07/07/20 Unknown Ur Specific [place] 1.022 (1.000-1.030) 07/07/20 Unknown Urine Protein Negative (Negative) 07/07/20 Unknown Urine Glucose (UA) 1+ (Negative) H 07/07/20 Unknown Urine Ketones Negative (Negative) 07/07/20 Unknown Urine Blood Negative (Negative) 07/07/20 Unknown Urine Nitrite Negative (Negative) 07/07/20 Unknown Urine Bilirubin Negative (Negative) 07/07/20 Unknown Urine Urobilinogen Negative (Negative) 07/07/20 Unknown Ur Leukocyte Esterase Negative (Negative) 07/07/20 Unknown Blood Type A Positive 07/07/20 13:27 Antibody Screen NEGATIVE 07/07/20 13:27 Total Time Total Time Spent Total Time Spent (In Minutes): 5 Discharge Plan Discharge Items Patient Disposition: Home - Self-Care Reason For Visit: Primary Osteoarthritis Shoulder Right Discharge Diagnosis: Primary osteoarthritis right shoulder. Activity: Per Instructions section Weightbearing: Right non-weightbearing Non-emergency contact: Surgeon Call non-emergency contact if: your pain is not controlled, your temperature is above 101.5, your wound has increased redness and your wound has increased drainage Follow-up/Referrals: Vaughn Guzman [Primary Care Provider] - Diet: Regular and Carb Consistent or DM2 Addtl Attending Provider Instructions: ACTIVITY RECOMMENDATIONS: SELF CARE INSTRUCTIONS AFTER TOTAL SHOULDER ARTHROPLASTY A. You may do daily exercises as taught in physical therapy while in hospital. No lifting with the operative arm. Please schedule your outpatient physical therapy appointment to begin within 2-3 days after leaving the hospital. Specific restrictions will be written on your physical therapy prescription that is provided to you. B. You are to wear your sling/immobilizer at all times EXCEPT when performing your daily exercises, participating in physical therapy and for hygiene purposes. C. You may perform dry, daily dressing changes. Please keep your incision covered. You may shower 48 hours after surgery. Do not apply soap or any ointment/lotions directly over incision. Do not soak incision in bath tub/swimming pool. D. You may use ice as needed to operative shoulder. SPECIAL CARE INSTRUCTIONS: MEDICATION INSTRUCTIONS: *It is recommended you take Aspirin 325mg daily for four weeks post-op. VERY IMPORTANT TO READ AND REVIEW A. There are a few signs you need to watch for after you are home. Call [facility] [place], [place] at [phone] if you experience any of the followin. Increased severe shoulder pain. Some pain is expected especially when you exercise. 2. Increased swelling in you shoulder or arm; pain or swelling in either upper extremity. 3. Any fluid drainage from the incision. 4. Shortness of breath or chest pain. B. Please call [facility] [place], [place] at [phone] if you have any questions or concerns about your operation or recovery. C. Call your physician if: 1. Temperature is greater than 101 degrees (F). 2. Pain is not relieved by prescribed pain medications. 3. Increase drainage or redness from incision. 4. Unanswered questions or concerns. FOLLOW UP VISIT: Please call [facility] [place], [place] at [phone] to schedule a follow up appointment with Dr. Brasher or his PA in 12-14 days from your surgery date. Stand-Alone Forms: My [employer]-cub[employer], Opioid Pain Management Medications and DC Order Prescriptions: New aspirin 81 mg Tablet,Delayed Release (Dr/Ec) 81 mg PO BID 30 Days Qty: 60 RF: 0 acetaminophen 500 mg Tablet 1,000 mg PO Q8 14 Days Qty: 84 RF: 0 polyethylene glycol 3350 [Miralax] 17 gram powder in packet 17 g PO DAILY PRN (Reason: constipation) Qty: 5 RF: 0 oxycodone 5 mg Tablet 5 mg PO Q4H MDD 6 PRN (Reason: pain) Qty: 30 RF: 0 Continued hydroxyzine HCl 25 mg Tablet 25 mg PO HS PRN (Reason: Sleep) RF: 0 lisinopril 5 mg Tablet 5 mg PO QAM RF: 0 Discontinued acetaminophen [Tylenol] 325 mg Tablet 325 mg PO QID PRN (Reason: Pain) RF: 0 meloxicam 15 mg Tablet 15 mg PO QDL RF: 0 Discharge Orders: Discharge Order (Routine); Ordered 07/28/20 Ordered By: Jam Chan/Other Patient Handouts: DVT Post Op Prevention, Eating Heart-Healthy Foods Admission Data Admit Date/Time: 07/27/20 16:11 Attending Provider: Garcia Brasher Admit Provider: Garcia Brasher Primary Care Provider: Vaughn Guzman Other Providers: Gauri Talbert ; Anil Oropeza Other Interventions: Discharge Summary Assessment (RN) Last Done: 07/28/20 11:06
== END 2020-07-28 12:57 | disposition home or self-care (01) | DRG 483 ==
LOC: ASU 10:47 → 3E 17:06

== ENCOUNTER 2022-12-19 04:59 | Observation (INO) ==
--- NOTE | 2022-11-22 12:09 | PAT Medication Instructions ---
Medication Instructions Date of Service November 22, 2022 Home Medications hydroxyzine HCl 25 mg tablet 25 mg PO QPM lisinopril 5 mg tablet 5 mg PO QAM magnesium 250 mg tablet 250 mg PO DAILY meloxicam 15 mg tablet 15 mg PO DAILY ASK your surgeon for instructions meloxicam 15 mg tablet 15 mg PO DAILY DO NOT take the morning of surgery lisinopril 5 mg tablet 5 mg PO QAM magnesium 250 mg tablet 250 mg PO DAILY Take evening before surgery hydroxyzine HCl 25 mg tablet 25 mg PO QPM OTHERWISE NOTHING TO EAT OR DRINK AFTER MIDNIGHT Other Notes If you have any questions please call us at [phone] or [phone] or [phone] or [phone]
--- NOTE | 2022-11-29 14:49 | Anesthesiology Consultation ---
Date of Service November 29, 2022 Assessment & Plan (1) Encounter for pre-operative examination: Chart Review Chart Review: Acceptable Risk for Surgery and Patient seen in Pre Admission Testing Pt currently scheduled as 23 hours observation. If surgeon decides to change patient to Same Day Joint, patient would be acceptable risk for TKA, pending patient is motivated, has good support and surgeon's office completes Same Day Joint Program preop requirements. Per PAT appt on 11/29/22, patient denies any recent travel. No recent Covid exposures, Covid related symptoms, or recent Covid positive tests. Pt is vaccinated for Covid. Will leave to surgeon's discretion if preop Covid testing needed. Educated on importance of using Covid precautions one week prior to surgery Right Total Shoulder Arthroplasty 07/27/20= Done under [facility] with LMA #4 iGel Teaching & Discussion Pre-Anesthesia Teaching/Discussion Notes: Instructed NPO after midnight before surgery,except medications with 15 cc of water. Medication instructions provided according to the PAT guidelines. History Surgery Operation Date: 12/19/22 09:35 Proposed Procedures p Left Total Knee Arthroplasty - Garcia Brasher MD Height/Weight Height: 5 ft 9 in Weight: 100.4 kg Allergies Allergy/AdvReac Type Severity Reaction Status Date / Time nitroglycerin AdvReac Mild passed Verified 11/22/22 08:04 out, low blood pressure Medications Home Medications Medication Instructions Recorded Confirmed Last Taken hydroxyzine HCl 25 mg tablet 25 mg PO QPM 06/22/20 11/22/22 07/26/20 21:00 lisinopril 5 mg tablet 5 mg PO QAM 06/22/20 11/22/22 07/26/20 07:00 magnesium 250 mg tablet 250 mg PO DAILY 11/22/22 11/22/22 Unknown meloxicam 15 mg tablet 15 mg PO DAILY 11/22/22 11/22/22 Unknown Past Medical History Medical History Borderline high cholesterol History of COVID-2020>resolved [place] (hard of hearing) Wears hearing aids intermittently HTN (hypertension) Insomnia Osteoarthritis Exercise / Class Metabolic Activity II 4-5 Yardwork/Stairs/Walk up hill (one flight of stairs - no chest pain or SOB ) Past Family History Family History Mother Diabetes Other No family history of adverse response to anesthesia Past Surgical History Surgical History H/O vasectomy History of arthroscopic knee surgery right/left History of arthroscopy of left shoulder History of colonoscopy History of ear surgery left *repaired hole History of lumbar surgery History of right shoulder replacement History of tonsillectomy and adenoidectomy History of tooth extraction Past Anesthesia History No Hx of Anesthesia Complications and No Family Hx of Anesthesia Complications History of PONV No Hx of PONV and No Hx of Motion Sickness Social History Smoking Status: Former smoker tobacco type: cigarettes Do You Dip or Chew Tobacco: No (1984) Smoking End Date: quit 1984 Hx Alcohol Use: No substance use type: does not use Review of Systems Patient denies chest pain, shortness of breath, dyspnea on exertion, reflux, cough, wheezing, palpitations. No hx of seizures, stroke, [place], apnea/snoring. No hx of blood clots or blood transfusions Physical Exam Vital Signs VITALS BP 119/73 P 77 TEMP 98.1 SP02 95% RESP 16 Constitutional no acute distress ENMT Mouth: + small oral opening; no TMJ clicking Thyromental Distance: > or= 3.5 Finger Breadths (3.5) Mallampati Class: III Mouth / Teeth: 1. Missing Missing side teeth and molar Neck + limited neck extension Respiratory normal respiratory effort; no respiratory distress Auscultation: lungs clear to auscultation bilaterally; no wheezes Cardiovascular Rate/Rhythm: regular rate and regular rhythm Heart Sounds: no murmur Vessels: no carotid bruit Musculoskeletal Spine: no pain with cervical ROM Extremities: extremities normal to inspection Psychiatric Orientation: alert Lab Results Anesthesia Preop Results Results Anesthesia Widget: WBC 6.42 K/ul (4.8-10.8) 11/29/22 Hgb 14.8 g/dl (14.0-18.0) 11/29/22 Hct 43.3 % (42.0-52.0) 11/29/22 Plt 200 K/uL (130-400) 11/29/22 Na 136 mmol/L (136-145) 11/29/22 K 3.9 mmol/L (3.5-5.1) 11/29/22 Cl 105 mmol/L (98-107) 11/29/22 CO2 26 mmol/L (21-32) 11/29/22 BUN 21 mg/dl (6-23) 11/29/22 Creat 0.93 mg/dl (0.6-1.4) 11/29/22 Glucose Level 110 mg/dl (70-99(Fasting)) H 11/29/22 PT 11.2 Seconds (9.0-12.0) 11/29/22 PTT 27.9 Seconds (21.0-31.0) 11/29/22 INR 1.0 (0.9-1.1) 11/29/22 Urine Color Yellow 11/29/22 Urine Appearance Clear (Clear) 11/29/22 Urine pH 6.5 (4.5-7.5) 11/29/22 Urine Specific [place] 1.023 (1.000-1.030) 11/29/22 Urine Protein Negative (Negative) 11/29/22 Urine Glucose (UA) Negative (Negative) 11/29/22 Urine Ketones Negative (Negative) 11/29/22 Urine Blood Negative (Negative) 11/29/22 Urine Nitrite Negative (Negative) 11/29/22 Urine Bilirubin Negative (Negative) 11/29/22 Urine Urobilinogen Negative (Negative) 11/29/22 Urine Leukocyte Esterase Negative (Negative) 11/29/22 Blood Type A Positive 11/29/22 Antibody Screen NEGATIVE 11/29/22 Testing Electrocardiogram Date: 09/05/22 SR at 77bpm Low voltage QRS in precordial leads per cardio Chest X-Ray Date: 11/29/22 Findings: + NAD FINDINGS: Right shoulder arthroplasty is incidentally noted. Lung volumes are normal. Lungs are clear. There is no pneumothorax or pleural effusion. Cardiac size is normal. Mediastinal contours are normal. There is no evidence for pulmonary edema. IMPRESSION: No acute cardiopulmonary findings.
--- NOTE | 2022-12-13 11:12 | History & Physical Report ---
Date of Service December 13, 2022 Assessment & Plan (1) Primary osteoarthritis of left knee: Plan: Treatment options discussed with the patient. He has failed conservative measures and would like to proceed with surgery. Risks, benefits and alternatives to surgery including but not limited to infection, DVT, pain, stiffness, need for revision surgery, damage to blood vessels, damage to nerves, PE, , were discussed with the patient and they wish to proceed. Plan for left total knee arthroplasty scheduled for Mireya Rivera with Dr. Brasher on December 19. Plan on outpatient physical therapy postop. Plan on aspirin 81 mg twice daily for 1 month postop for DVT prophylaxis. All questions answered. Patient will follow-up postop. History of Present Illness Chief Complaint: Left knee pain Primary Care Provider: ITZEL Toro 67-year-old male with past medical history significant for hypertension who presents with ongoing left knee pain. Pain is interfering with his daily activities. He has failed conservative measures and would like to proceed with surgical intervention. Patient denies headaches, sweats, fevers, chills, double vision, blurred vision, cough, sore throat, dysphagia, chest pain, sob, wheezing, n/v/d/c, numbness, tingling, fatigue, urinary symptoms, mood disorders. ROS positive for left knee pain and stiffness. Allergies Allergy/AdvReac Type Severity Reaction Status Date / Time nitroglycerin AdvReac Mild passed Verified 11/22/22 08:04 out, low blood pressure Home Medications Medication Instructions Recorded Confirmed Type hydroxyzine HCl 25 mg tablet 25 mg PO QPM 06/22/20 11/22/22 History lisinopril 5 mg tablet 5 mg PO QAM 06/22/20 11/22/22 History magnesium 250 mg tablet 250 mg PO DAILY 11/22/22 11/22/22 History meloxicam 15 mg tablet 15 mg PO DAILY 11/22/22 11/22/22 History Past Med/Surg History Medical History Borderline high cholesterol History of COVID-2020>resolved [place] (hard of hearing) Wears hearing aids intermittently HTN (hypertension) Insomnia Osteoarthritis Surgical History H/O vasectomy History of arthroscopic knee surgery right/left History of arthroscopy of left shoulder History of colonoscopy History of ear surgery left *repaired hole History of lumbar surgery History of right shoulder replacement History of tonsillectomy and adenoidectomy History of tooth extraction Family History Mother Diabetes Other No family history of adverse response to anesthesia Social History Smoking Status: Former smoker Second Hand Exposure: No; Do You Dip or Chew Tobacco: No (1984); Hx Alcohol Use: No Preferred Language: Chinese Communication Ability: Effective Consumer Education Specialist Required: No Beliefs That Will Affect Care: None marital status: Current Living Situation: Spouse Feels Safe at Home: Yes Assistive Devices: Glasses and Hearing Aid - Bilateral Review of Systems All systems reviewed & are unremarkable except as noted in HPI & below Physical Exam Constitutional: well developed and well nourished; no acute distress Eyes: PERRL, conjunctivae normal, anicteric sclerae ENMT: external ear and nose normal, oropharynx normal Neck: trachea midline, no thyromegaly Respiratory: normal respiratory effort, lungs clear to auscultation Cardiovascular: RRR, no murmur, no edema Musculoskeletal: Left knee: Varus alignment. Tenderness medial joint line. Mild effusion. Mild crepitation with range of motion. Range of motion is 0 to 135 degrees. Positive Edmund's. Stable to valgus and varus stress test. Skin: no rashes, warm and dry Neurologic: patellar DTR's 2+ bilat, sensation intact Psychiatric: A+Ox3, euthymic affect Results & Data Diagnostic Findings Left knee radiographs demonstrate tricompartmental arthritic changes with varus alignment. There is significant joint space narrowing medial compartment, near [id number]. There is periarticular osteophytes.
[2022-12-19] MEDS ORDERED: ACETAMINOPHEN 500 MG TAB PO SCH (06:00)
[2022-12-19] MEDS ORDERED: ceFAZolin 2000MG 2,000 MG/15 ML SYR IV SCH (06:00)
[2022-12-19] MEDS ORDERED: TRANEXAMIC ACID 1,000 MG **IV Intra-op IV SCH (06:00)
[2022-12-19] MEDS ORDERED: GABAPENTIN 300 MG CAP PO SCH (06:00)
[2022-12-19] MEDS ORDERED: TRANEXAMIC ACID 1,000 MG **IV Pre-op IV SCH (06:00)
[2022-12-19] MEDS ORDERED: dexAMETHasone 4 MG TAB PO SCH (06:00)
[2022-12-19] MEDS ORDERED: CeleBREX 200 MG CAP PO SCH (06:00)
[2022-12-19] MEDS ORDERED: LR 500ML BOLUS, THEN 15ML/HR IV SCH (06:00)
[2022-12-19] MEDS ORDERED: FAMOTIDINE 20 MG TAB PO SCH (06:00)
[2022-12-19] MEDS ORDERED: ROPIVACAINE 0.5% HCL/PF 150 MG, BUPIVACAINE 0.75% MPF 20 ML, EPINEPHrine 30MG/30ML (OR ... INSTIL SCH (06:00)
[2022-12-19] MEDS ORDERED: METOCLOPRAMIDE HCL 10 MG TABLET PO SCH (06:00)
[2022-12-19] MEDS ORDERED: LR 60ML/HR IV SCH (06:00)
[2022-12-19] MEDS ORDERED: BUPIVACAINE 0.5 % 5 MG/1 ML PF 10ML VIAL ONE (06:25)
[2022-12-19] MEDS ORDERED: ROPIVACAINE 0.5% 5 MG/ML 30 ML VIAL ONE (06:26)
[2022-12-19] MEDS ORDERED: DEXAMETHASONE SOD INJ 4 MG/ML VIAL ONE ×2 (06:26→06:40)
[2022-12-19] MEDS ORDERED: MIDAZOLAM HCL 1 MG/ML 2ML VIAL ONE ×2 (06:40→07:41)
[2022-12-19] MEDS ORDERED: LIDOCAINE 2% 2 ML VIAL/AMP(20MG/ML) INFIL ONE (06:40)
[2022-12-19] MEDS ORDERED: ONDANSETRON INJ 2 MG/ML 2 ML VIAL ONE (06:40)
[2022-12-19] MEDS ORDERED: fentaNYL citrate PF 100 MCG/2 ML VIAL ONE (06:40)
[2022-12-19] MEDS ORDERED: PROPOFOL IV EMULSION 10 MG/ML 20 ML VIAL IV ONE ×4 (06:40→09:17)
[2022-12-19] MEDS ORDERED: ORTHO JOINT ANESTHETIC ONE (06:44)
[2022-12-19] MEDS ORDERED: ONDANSETRON INJ 2 MG/ML 2 ML VIAL IV PRN ×2 (06:58→11:51)
[2022-12-19] MEDS ORDERED: ePHEDrine sulfate 50 MG/ML AMP IV PRN (06:58)
[2022-12-19] MEDS ORDERED: HYDROmorphone INJ 1 MG/ML SYRINGE IV PRN (06:58)
[2022-12-19] MEDS ORDERED: ATROPINE SULFATE 0.1 MG/ML 10ML SYR IV PRN (06:58)
--- NOTE | 2022-12-19 07:16 | History & Physical Bridge Note ---
Date of Service December 19, 2022 History & Physical Bridge Note I have examined the patient, reviewed the History & Physical and in the interval since the performance of the History & Physical I have noted the following changes of clinical significance: no changes noted
[2022-12-19] MEDS ORDERED: ePHEDrine sulfate 50 MG/ML SYR ONE (08:04)
--- NOTE | 2022-12-19 09:22 | Operative Report ---
Post Operative Report Pre & Post Diagnosis Operation Date: 12/19/22 07:00 Pre-Op Diagnosis: Left Knee Osteoarthritis Post-Op Diagnosis: Left Knee Osteoarthritis I identified the patient and participated in the time-out.: Yes Procedure Operation Date: 12/19/22 07:00 Actual Procedures p Left Total Knee Arthroplasty(Left) , ginger and Acticoat superficial wound VAC application- Garcia Brasher MD Surgeon Garcia Brasher MD Director Of Claims Jam PEREA Estimated Blood Loss 5 Findings Consistent with Post-Op Diagnosis Specimens bone cuts Drains 2 Hemovac Anesthesia Type MAC Spinal Regional Complications none Disposition Disposition: Recovery Room Indications 67-year-old male with progressive bilateral knee osteoarthritis failed conservative management. Left knee somewhat more symptomatic than his right. Radiographs demonstrate that he has patellofemoral and medial compartment osteoarthritis with grade 4 osteoarthritis [id number] medial compartment on flexion views. Description of Procedure The patient was taken to the operating room and anesthetized under Spinal MAC regional block. Patient was placed supine on the the operating table. A pneumatic tourniquet was placed about the Left upper thigh. The knee exam demonstrated moderately large effusion with 0 through 130 degrees range of motion and no pseudolaxity no instability with mild varus knee alignment. The involved leg was elevated exsanguinated with Esmarch bandage and the pneumatic tourniquet was raised to 300 millimeters mercury. A longitudinal incision was made across the anterior knee. Skin flaps were elevated. An incision was made into the medial retinaculum and extended up into the mid third of the quadriceps tendon and extended down to the tibial tubercle. Intra-articular findings demonstrated medial compartment and patellofemoral OA. Grade 3 global chondromalacia on the patella with patellar osteophytes and grade 4 medial compartment osteoarthritis far medial side of the joint on femoral condyle and anterior medial tibial plateau. There was Widening and degeneration of the ACL. The knee was exposed by excising cruciate ligaments and menisci. The infrapatellar fat pad was resected. The fat pad over the anterior femur at the upper aspect of the articular surface was resected for placement of the component in that area. A subperiosteal peel lateral release was performed around the patella. The [employer] 2.0 total knee arthroplasty system was utilized for the procedure. The custom femoral cutting guide was pinned in position. The distal femoral cut was made. The size 5, 5 in 1 cutting block was placed. The anterior posterior and chamfer cuts were made. The knee was extended and a free hand cut technique was performed to the patella. The patella with was measured and the width was reproduced using a 41 patella component. 3 drill holes are made for the patella component pegs. The tibia was then subluxed. The custom tibial cutting block was pinned in position and the proximal tibial cut was made with the oscillating saw. The size 5 tibial trial was externally rotated in l ine with the tibial tubercle and pinned in position. The punch for the stem was used. The femoral trial was inserted and centered the notch cutting devices were used and the collet was placed. Tibial trials were used for the insert. The size 15 trial gave balanced ligaments through full range of motion. Patella tracking was assessed with range of motion. The patella tracked centrally. The trials were removed. The Orthomix anesthetic cocktail was injected per protocol. The cut bone surfaces and soft tissue were copiously irrigated with pulsatile lavage saline solution. The final components were cemented with Refobacin cement. The final components were [employer] 2.0 size 5 left femoral component, size 5 left tibial component, a 15 mm posterior stabilized tibial polyethylene insert and a 41 mm symmetrical polyethylene patella After the cement cured, the Betadine soak was used for 3 minutes. The knee was then copiously irrigated with pulsatile lavage saline s olution. 2 drains were brought out laterally connected to Hemovac. The quadriceps tendon and medial retinaculum were closed with interrupted [id number] #1 Vicryl sutures. The knee was taken through full range of motion and repair was secure. Knee range of motion was 0 through 130 degrees. the subcutaneous tissues were closed with 2-0 Vicryl sutures. The skin was closed with Rugby. A Ginger and Acticoat superficial wound VAC was applied. The tourniquet was let down and the patient had good capillary refill to the extremity. The patient tolerated the procedure well. My physician behavioral health assistant Jam PEREA participated as conventions assistant and was integral part in all aspects of the procedure including prepping, draping, leg positioning, soft tissue retraction, instrument management and assisted in the closure , superficial wound VAC application and will participate in postoperative care the patient. I attest to the content of the Intraoperative Record and any orders documented therein. Any exceptions are noted below.
--- NOTE | 2022-12-19 10:38 | XRay Report ---
XR knee LT 1 or 2V routine HISTORY: 67 years-old Male Surgical Post Op left knee arthroplasty COMPARISON: None TECHNIQUE: 2 views of the left knee FINDINGS: Total joint arthroplasty with patellar resurfacing. Anterior midline skin pacheco are present along w ith expected postoperative soft tissue swelling with deep tissue air. Surgical drainage catheter. No acute fracture, dislocation or unexpected opaque foreign body. IMPRESSION: Total joint arthroplasty with expected postoperative changes. ACT 112: Negative or not required by law. The above report was generated using voice recognition software. It may contain grammatical, syntax o r spelling errors. Electronically signed by: Jordan Blandon M.D. 12/19/2022 10:37 AM
--- NOTE | 2022-12-19 11:09 | Anesthesiology Progress Note ---
Date of Service December 19, 2022 Anesthesia Post Procedure Vital Signs Vital Signs: Temp Pulse Pulse Resp BP Pulse Ox O2 Del Method 12/19/22 11:05 81 17 107/69 97 Room Air 12/19/22 10:55 83 21 100/68 94 Room Air 12/19/22 10:45 86 16 103/73 95 Room Air 12/19/22 10:35 87 19 115/67 97 Room Air 12/19/22 10:25 36.4 C L 79 16 99/68 L 96 Room Air 12/19/22 10:15 80 15 103/72 96 Room Air 12/19/22 10:05 79 12 106/72 95 Room Air 12/19/22 09:55 85 20 109/70 97 Room Air 12/19/22 09:45 84 19 124/66 98 Oxymask 12/19/22 09:36 36.3 C L 86 16 108/62 98 Oxymask 12/19/22 05:36 36.5 C 67 18 141/94 H 96 Room Air O2 Flow Rate 12/19/22 11:05 12/19/22 10:55 12/19/22 10:45 12/19/22 10:35 12/19/22 10:25 12/19/22 10:15 12/19/22 10:05 12/19/22 09:55 12/19/22 09:45 6 12/19/22 09:36 6 12/19/22 05:36 Pain Intensity Left Knee: Pain Intensity: 2 Transfer of Care Handoff Completed per policy Notes Mental Status: alert / awake / arousable and participated in evaluation Nausea / Vomiting: adequately controlled Pain: adequately controlled Airway Patency, RR, SpO2: stable & adequate BP & HR: stable & adequate Hydration State: stable & adequate Neuraxial Anesthesia: was administered and sensory block is resolving Anesthetic Complications: no major complications apparent and Pt Satisfied with anesthetic care
[2022-12-19] MEDS ORDERED: MAGNESIUM HYDROXIDE SUSP 30 ML UDC PO PRN (11:51)
[2022-12-19] MEDS ORDERED: bisacodyL 10 MG SUPP PR PRN (11:51)
[2022-12-19] MEDS ORDERED: NALOXONE HCL 0.4 MG/1 ML VIAL/CARP IV PRN (11:51)
[2022-12-19] MEDS ORDERED: diphenhydrAMINE 50 MG/ML VIAL IV PRN (11:51)
[2022-12-19] MEDS ORDERED: HYDROmorphone INJ 0.5 MG/0.5 ML SYR IV PRN (11:51)
[2022-12-19] MEDS: SODIUM CHLORIDE 0.9% 1000ML 1,000 ML IV SCH ×2 (12:06→22:23)
[2022-12-19] MEDS: ACETAMINOPHEN 500 MG TAB PO SCH ×2 (13:43→20:52)
[2022-12-19] MEDS: ceFAZolin 2000MG 2,000 MG/15 ML SYR IV SCH ×2 (16:15→23:00)
[2022-12-19] MEDS: ASPIRIN 81 MG ECTAB PO SCH (20:51)
[2022-12-19] MEDS: DOCUSATE SODIUM 100 MG CAP PO SCH (20:52)
[2022-12-19] MEDS ORDERED: hydrOXYzine HCl 25 MG TAB PO SCH (21:00)
[2022-12-19] MEDS ORDERED: SENNA 8.6 MG TAB PO SCH (21:00)
[2022-12-20] MEDS: ACETAMINOPHEN 500 MG TAB PO SCH ×2 (04:51→15:38)
[2022-12-20 07:27] LABS: Hematocrit (blood only) 36.8 % (42.0-52.0); Hemoglobin 12.8 g/dl (14.0-18.0); Mean Corpuscular Hemoglobin 30.4 pg (25.0-34.0); Mean Corpuscular Hgb Conc 34.8 g/dL (32.0-36.0); Mean Corpuscular Volume 87.4 fL (80.0-100.0); Mean Platelet Volume 10.1 fL (9.4-12.4); Platelet Count 204 K/uL (130-400); RDW Coefficient of Variation 12.5 % (11.5-14.5); Red Blood Count 4.21 M/uL (4.70-6.10); White Blood Count 16.72 K/ul (4.8-10.8)
--- NOTE | 2022-12-20 07:33 | Orthopedic Progress Note ---
Date of Service December 20, 2022 Assessment & Plan (1) Status post left knee replacement: Plan: 67 yo male stable POD #1 s/p left TKA 1. Med management 2. DVT prophylaxis- ASA, SCDs 3. PT/OT 4. D/C planning- likely home later today w/ OPPT Admission and Anticipated Discharge Date Admission Date: December 19, 2022 Subjective Pt resting in bed, doing exercises, denies complaints, pain controlled Physical Exam Physical Exam: Dressing, hemovac drain in place, 275ml output 7p-5a, toes mobile, NVI Results & Data Vital Signs (Past 12 Hours) Vital Signs Temp Pulse Resp BP Pulse Ox O2 Del Method 12/20/22 07:12 36.4 C L 80 18 127/75 97 Room Air 12/20/22 02:59 36.6 C 80 18 115/57 L 99 Room Air 12/19/22 22:59 36.6 C 88 18 109/65 94 Room Air Laboratory Results 12/20/22 12/20/22 Range/Units 05:33 05:33 WBC 16.72 H (4.8-10.8) K/ul RBC 4.21 L (4.70-6.10) M/uL Hgb 12.8 L (14.0-18.0) g/dl Hct 36.8 L (42.0-52.0) % MCV 87.4 (80.0-100.0) fL MCH 30.4 (25.0-34.0) pg MCHC 34.8 (32.0-36.0) g/dL RDW Std Deviation 40.0 (36.4-46.3) fL RDW Coeff of Girish 12.5 (11.5-14.5) % Plt Count 204 (130-400) K/uL MPV 10.1 (9.4-12.4) fL Sodium Pending Potassium Pending Chloride Pending Carbon Dioxide Pending Anion Gap Pending BUN Pending Creatinine Pending Est Cr Clr Drug Dosing Pending Est GFR ( Amer) Pending Est GFR (Non-Af Amer) Pending BUN/Creatinine Ratio Pending Glucose Pending Calcium Pending
[2022-12-20 07:43] LABS: BUN Creatinine Ratio 22.3 (10-20); Calcium 8.8 mg/dl (8.6-10.3); Creatinine Clr Calc Pharmacy 90.1 ml/min; Est GFR (African American) 97.5 ml/min; Est GFR (Non-African American) 84.2 ml/min; Potassium 4.4 mmol/L (3.5-5.1)
[2022-12-20] MEDS: oxyCODONE HCL IR 5 MG TAB (IMMEDIATE RELEASE) PO PRN ×2 (08:29→18:13)
[2022-12-20] MEDS: ASPIRIN 81 MG ECTAB PO SCH (08:31)
[2022-12-20] MEDS: DOCUSATE SODIUM 100 MG CAP PO SCH (08:31)
[2022-12-20] MEDS ORDERED: MULTIVITAMIN TAB PO SCH (09:00)
[2022-12-20] MEDS ORDERED: lisinopril 5 MG TAB PO SCH (09:00)
[2022-12-20] MEDS ORDERED: MAGNESIUM OXIDE 400 MG TAB PO SCH (09:00)
== END 2022-12-20 18:20 | disposition home or self-care (01) ==
LOC: ASU 04:59 → 3E 04:59